=== PATIENT | female | born 1960 | race African-American/Black ===

== ENCOUNTER 2018-07-20 11:04 | Emergency (ER) | payer OTHER ==
[~2018-07-20] VITALS: Ht 147.3 cm; Wt 65.0 kg
[2018-07-20] MEDS ORDERED: KETOROLAC 30MG/ML VIAL IM ONE (12:00)
[2018-07-20 14:02] VITALS: BP 128/76
== END 2018-07-20 14:02 | disposition home or self-care (01) ==
LOC: ER 11:04
DX: S39.012A Strain of muscle, fascia and tendon of lower back, initial encounter (principal); I11.0 Hypertensive heart disease with heart failure; I50.9 Heart failure, unspecified; E11.9 Type 2 diabetes mellitus without complications; V43.52XA Car driver injured in collision with other type car in traffic accident, initial encounter; Y93.89 Activity, other specified; Y92.410 Unspecified street and highway as the place of occurrence of the external cause
CPT/HCPCS: 72070; 73502; 73610; 96372; 99284; J1885

== ENCOUNTER 2018-07-28 12:43 | Emergency (ER) | payer MEDICAID, OTHER ==
[~2018-07-28] VITALS: Ht 147.3 cm; Wt 84.0 kg
[2018-07-28 14:17] VITALS: BP 125/73
== END 2018-07-28 16:41 | disposition home or self-care (01) ==
LOC: ER 15:43
DX: M54.6 Pain in thoracic spine (principal); M25.511 Pain in right shoulder; M62.830 Muscle spasm of back; I11.0 Hypertensive heart disease with heart failure; I50.9 Heart failure, unspecified; E11.9 Type 2 diabetes mellitus without complications; Z98.51 Tubal ligation status; Z98.890 Other specified postprocedural states
CPT/HCPCS: 99283